=== PATIENT | female | born 1945 | race Caucasian/White ===

== ENCOUNTER → 2019-11-23 | Outpatient (CLI) | payer OTHER ==
[~2019-11-23] MED LIST: AMITRIPTYLINE; DARVOCET-N 1001 EAC1 PO; KEFLEX500 MG PO; PROZAC 10 MG CA10 M1 PO; TEGRETOL XR100 MG PO
== END ==
LOC: M.LAB 13:54
PROVIDERS: ATTEND Internal Medicine Gastroenterology
DX: Z01.812 Encounter for preprocedural laboratory examination (principal); D64.9 Anemia, unspecified

== ENCOUNTER → 2019-12-03 | Outpatient (CLI) | payer OTHER | LOC: M.CT 07:16 | DX: C18.2 Malignant neoplasm of ascending colon (principal); R91.1 Solitary pulmonary nodule; K76.0 Fatty (change of) liver, not elsewhere classified; I70.0 Atherosclerosis of aorta; K57.30 Diverticulosis of large intestine without perforation or abscess without bleeding; M43.17 Spondylolisthesis, lumbosacral region; M51.35 Other intervertebral disc degeneration, thoracolumbar region; M51.26 Other intervertebral disc displacement, lumbar region ==

== ENCOUNTER 2020-02-29 04:57 | Inpatient (IN) | payer OTHER ==
[~2020-02-29] VITALS: Ht 167.6 cm; Wt 77.1 kg
[2020-02-29] MEDS ORDERED: ATENOLOL 25 MG25 M1 PO (05:15)
[2020-02-29] MEDS ORDERED: ACYCLOVIR 400400 MG PO (05:15)
[2020-02-29] MEDS ORDERED: TEGRETOL200 MG PO (05:16)
[2020-02-29] MEDS ORDERED: CHOLECALCIFEROL PO (05:19)
[2020-02-29] MEDS ORDERED: CELEXA 20 MG TA20 MG PO (05:19)
[2020-02-29] MEDS ORDERED: VITAMIN B-650 M1 PO (05:20)
[2020-02-29] MEDS ORDERED: IRON325 M1 PO (05:20)
[2020-02-29] MEDS ORDERED: ZOFRAN8 MG PO (05:20)
[2020-02-29] MEDS ORDERED: TRAMADOL 50 MG50 MG PO (05:20)
[2020-02-29] MEDS ORDERED: ELIQUIS PO (05:21)
[2020-02-29 05:25] VITALS: BP 210/80
[2020-02-29 05:47] LABS: HEMOGLOBIN 11.1 gm/dL (12.0-15.0); NUCLEATED RBCS 0 /100WBC
[2020-02-29 05:49] LABS: HEMATOCRIT 32.2 % (37.0-47.0); MCH 31.3 pg (26.0-34.0); MCHC 34.6 g/dL (28.0-37.0); MCV 90.5 fL (80.0-100.0); MPV 9.2 fl. (7.2-11.1); PLATELET COUNT* 73 thou/uL (150-400); RBC 3.56 mil/uL (4.20-5.00); RDW-CV 14.1 % (10.5-14.5)
[2020-02-29 05:54] LABS: WBC 0.6 thou/uL (4.0-11.0)
[2020-02-29 05:55] LABS: CREATININE 1.5 mg/dL (0.6-1.3); POTASSIUM 3.3 mmol/L (3.5-5.1)
[2020-02-29 05:59] LABS: MAGNESIUM 1.4 mg/dL (1.8-2.4); TOTAL BILIRUBIN 0.5 mg/dL (<0.1-1.0)
[2020-02-29 06:01] LABS: BE -3.4 mmol/L (-2 to +3); PCO2 28.2 mmHg (35.0-45.0); PO2 108.5 mmHg (75.0-100.0); pH 7.455 (7.340-7.450)
[2020-02-29 06:46] LABS: ABSOLUTE LYMPHOCYTES 0.5 thou/uL (0.8-5.3); ABSOLUTE MONOCYTES 0.1 thou/uL (0.0-1.2); ATYPICAL LYMPHS 10 %
[2020-02-29 06:47] LABS: PLATELET ESTIMATE DECREASED
[2020-02-29 07:35] VITALS: BP 142/44
--- NOTE | 2020-02-29 10:32 | EKG ---
[place] [address] ELECTROCARDIOGRAM REPORT Name: PLACIDO RANGEL Room: [address] M.R.#: [id number] Admission: 02/29/20 Attend Phys: Alicia Jenkins, Discharge: Date of : 41 Date of Service: 02/29/20 0530 Report #: [id number] THIS REPORT FOR: //name// [facility] ED Test Date: 2020-02-29 Test Time: 05:30:19 Pat Name: PLACIDO RANGEL Department: Room: [facility] Gender: F Vp Genetic: MT : 1945 Requested By: Arleth Meehan Order Number: [id number] MD: Kumar Jang Measurements Intervals [place] Rate: 82 P: 83 CA: 177 QRS: 2 QRSD: 97 T: 68 QT: 373 QTc: 436 Interpretive Statements Sinus rhythm Nonspecific ST-T abnormalities No previous ECG available for comparison Electronically Signed On 02-29-2020 10:32:34 CDT by Kumar Jang [email or web address] <ELECTRONICALLY SIGNED> By: Kumar Jang MD, [facility] 02/29/20 1032 0530 Kumar Jang MD, [facility] /EPI
[2020-02-29 16:00] VITALS: BP 153/53
[2020-02-29 20:00] VITALS: BP 143/47
[2020-03-01 04:04] LABS: HEMATOCRIT 25.7 % (37.0-47.0); MCH 31.3 pg (26.0-34.0); MCV 89.5 fL (80.0-100.0); MPV 8.7 fl. (7.2-11.1); NUCLEATED RBCS 1 /100WBC; PLATELET COUNT* 60 thou/uL (150-400); RBC 2.87 mil/uL (4.20-5.00); RDW-CV 14.3 % (10.5-14.5)
[2020-03-01 04:23] LABS: CALCIUM 7.4 mg/dL (8.5-10.1); CREATININE 1.5 mg/dL (0.6-1.3); MAGNESIUM 1.4 mg/dL (1.8-2.4); POTASSIUM 3.2 mmol/L (3.5-5.1)
[2020-03-01 04:54] LABS: WBC 1.1 thou/uL (4.0-11.0)
[2020-03-01 05:16] LABS: URINE BILIRUBIN NEGATIVE (Negative); URINE BLOOD 1+ (Negative); URINE CLARITY CLEAR; URINE COLOR YELLOW; URINE GLUCOSE-RANDOM NEGATIVE (Negative); URINE KETONES NEGATIVE (Negative); URINE LEUKOCYTES-REFLEX NEGATIVE (Negative); URINE NITRITE-REFLEX NEGATIVE (Negative); URINE PROTEIN 1+ (Negative); URINE UROBILINOGEN 0.2 E.U./dl (0.2-1.0)
[2020-03-01 06:05] LABS: BACTERIA-REFLEX 1-9 Few /HPF (None Seen); CASTS None Seen /LPF (None Seen); CRYSTALS None Seen /LPF (None Seen); MUCUS None Seen strn/LPF (None Seen); SQUAMOUS 0-3 Few /LPF (0-3); URINE RBC 3-10 Few /HPF (0-2); URINE WBC-REFLEX 0-5 Rare /HPF (0-5)
[2020-03-01 07:04] LABS: ABSOLUTE LYMPHOCYTES 0.8 thou/uL (0.8-5.3); ABSOLUTE MONOCYTES 0.1 thou/uL (0.0-1.2); ABSOLUTE NEUTROPHILS 0.2 thou/uL (1.6-8.1); ATYPICAL LYMPHS 2 %
[2020-03-01 07:06] LABS: PLATELET ESTIMATE DECREASED
[2020-03-01 07:09] LABS: OVALOCYTES Occasional
[2020-03-01 08:00] VITALS: BP 146/55
[2020-03-01 17:45] VITALS: BP 142/55
[2020-03-01 21:00] VITALS: BP 140/65
[2020-03-02 04:32] LABS: HEMATOCRIT 23.6 % (37.0-47.0); HEMOGLOBIN 8.2 gm/dL (12.0-15.0); MCH 31.4 pg (26.0-34.0); MCHC 34.9 g/dL (28.0-37.0); MCV 89.8 fL (80.0-100.0); MPV 8.8 fl. (7.2-11.1); RBC 2.63 mil/uL (4.20-5.00); RDW-CV 14.9 % (10.5-14.5); WBC 2.9 thou/uL (4.0-11.0)
[2020-03-02 04:52] LABS: CALCIUM 7.5 mg/dL (8.5-10.1); CREATININE 1.3 mg/dL (0.6-1.3); MAGNESIUM 1.4 mg/dL (1.8-2.4); POTASSIUM 3.6 mmol/L (3.5-5.1); TOTAL BILIRUBIN 0.2 mg/dL (<0.1-1.0); TOTAL PROTEIN 5.3 g/dL (6.4-8.2)
[2020-03-02 07:46] VITALS: BP 157/62
[2020-03-02 16:25] VITALS: BP 151/55
[2020-03-02 19:30] VITALS: BP 163/64
[2020-03-03 04:05] LABS: HEMATOCRIT 25.1 % (37.0-47.0); HEMOGLOBIN 8.8 gm/dL (12.0-15.0); MCH 31.6 pg (26.0-34.0); MCHC 35.2 g/dL (28.0-37.0); MPV 8.9 fl. (7.2-11.1); RBC 2.79 mil/uL (4.20-5.00); RDW-CV 14.7 % (10.5-14.5); WBC 8.9 thou/uL (4.0-11.0)
[2020-03-03 04:28] LABS: CREATININE 1.3 mg/dL (0.6-1.3); MAGNESIUM 1.3 mg/dL (1.8-2.4); POTASSIUM 3.3 mmol/L (3.5-5.1)
[2020-03-03] MEDS ORDERED: CHOLESTYRAMINE P4 GM PO (07:35)
[2020-03-03] MEDS ORDERED: FLAGYL500 M1 PO (07:35)
[2020-03-03] MEDS ORDERED: LEVAQUIN 500 M500 M1 PO (07:35)
[2020-03-03] MEDS ORDERED: FLORANEX TABLE1 EACH PO (07:35)
[2020-03-03 08:40] VITALS: BP 151/55
[2020-03-03 11:52] VITALS: BP 151/55
== END 2020-03-03 13:29 | disposition home or self-care (01) | DRG 871 ==
LOC: M.ERS 04:57 → M.TBA-ER 06:36 → M.3W 06:36
PROVIDERS: Internal Medicine; Personal Emergency Response Attendant; ADMIT Internal Medicine; ATTEND Internal Medicine
DX: A41.89 Other specified sepsis (principal); N17.0 Acute kidney failure with tubular necrosis; C18.2 Malignant neoplasm of ascending colon; E87.1 Hypo-osmolality and hyponatremia; D68.59 Other primary thrombophilia; F32.9 Major depressive disorder, single episode, unspecified; K52.9 Noninfective gastroenteritis and colitis, unspecified; E87.6 Hypokalemia; E86.9 Volume depletion, unspecified; F41.1 Generalized anxiety disorder; D50.9 Iron deficiency anemia, unspecified; D69.59 Other secondary thrombocytopenia; D70.2 Other drug-induced agranulocytosis; T45.1X5A Adverse effect of antineoplastic and immunosuppressive drugs, initial encounter; Z20.828 Contact with and (suspected) exposure to other viral communicable diseases; Y92.89 Other specified places as the place of occurrence of the external cause; Z88.5 Allergy status to narcotic agent; Z88.2 Allergy status to sulfonamides; Z79.899 Other long term (current) drug therapy; Z90.49 Acquired absence of other specified parts of digestive tract; Z85.038 Personal history of other malignant neoplasm of large intestine; Z92.21 Personal history of antineoplastic chemotherapy